=== PATIENT | male | born 1950 | race African-American/Black ===

== ENCOUNTER 2020-02-07 14:46 | Inpatient (IN) | payer MEDICARE, SELFPAY ==
[2020-02-07] VITALS (9 sets, daily range): BP systolic 117–169; BP diastolic 58–88; PULSE 83–104; RESP 16–18; TEMP 36.4–36.8; O2SAT 98–100; BMI 29.7
--- NOTE | ~2020-02-07 | XR_ITS ---
EXAMINATION: XR chest 1V portable EXAM DATE: 02/07/2020 15:47 INDICATION: Cough. TECHNIQUE: Frontal and lateral projections of the chest obtained and reviewed. There is no prior glenn dy for comparison. FINDINGS: There is patchy bilateral ill-defined airspace disease, differential diagnosis including C OVID-19, other viral or less likely bacterial infectious process, edema. Please clinically correlate. The cardiomediastinal silhouette is prominent but magnified on this AP technique. There is no pneumo thorax suspected. There are no pleural effusions. There are no osseous abnormalities identified. IMPRESSION: Patchy bilateral acute airspace disease. Recommend considering/excluding COVID 19. I discussed this case with Rasheeda Martin at 02/07/2020 16:11 CDT. Reviewed, dictated and finalized at location A. IMPRESSION: Patchy bilateral acute airspace disease. Recommend considering/exc luding COVID 19. I discussed this case with Rasheeda Martin at 02/07/2020 16:11 CDT.
--- NOTE | ~2020-02-07 | CT_ITS ---
EXAMINATION: CTA chest PE protocol EXAM DATE: 02/07/2020 17:45 INDICATION: Shortness of breath, cough, elevated d-dimer. TECHNIQUE: Spiral CTA of the chest (pulmonary arteries) was performed with 100 cc Omnipaque 350 intr avenous contrast injection. Images were acquired during the pulmonary arterial phase. Coronal maxi mum intensity projection 3D-reconstructions were created by the technologist on dedicated workstation . Axial, coronal and sagittal reformatted images were reviewed. The dose-length product (DLP) for t his examination was 850.56 mGy-cm. The exposure was tailored according to patient size (auto mA exp osure control), and iterative reconstruction (ASIR) was used as additional dose reduction technique. There is no prior study for comparison. FINDINGS: Pulmonary arteries are well opacified and without intraluminal filling defects. No thora cic aortic dissection. Bilateral patchy groundglass opacities Appearance is fairly typical of early stage COVID 19-induced acute lung injury. Less likely acute possibilities include influenza, pulmonary edema or hemorrhage. Some chronic processes that can have this appearance include cryptogenic organizing pneumonia, desqu amative interstitial pneumonia, nonspecific interstitial pneumonia, drug toxicity, connective tissue disease. Please clinically correlate and test as appropriate. There are no pleural or pericardial effusions. Tracheobronchial tree is patent. Several right hil ar lymph nodes measuring up to about 1.5 x 1.3 cm, mildly enlarged and probably reactive. There is n o pneumothorax. Heart normal in size. No evidence of coronary arterial calcification. There is sm all sliding gastroesophageal hiatal hernia. Sizable bridging mid and lower thoracic endplate osteoph ytes, diffuse idiopathic skeletal hyperostosis. IMPRESSION: 1. Patchy bilateral airspace disease suspicious for COVID-19 pneumonia. Clinical correlation. 2. Mild right hilar lymphadenopathy likely reactive. 3. No pulmonary emboli. Reviewed, dictated and finalized at location A. IMPRESSION: 1. Patchy bilateral airspace disease suspicious for COVID-19 pneumonia. Clinic al correlation. 2. Mild right hilar lymphadenopathy likely reactive. 3. No pulmonary emboli.
[2020-02-07 15:55] LABS: Basophils Percent Auto 0.2 % (0.2-1.2); Eosinophils Absolute Auto 0.1 K/mm3 (0-0.3); Eosinophils Percent Auto 2.2 % (0-4.4); Hematocrit 27.4 % (42.0-52.0); Hemoglobin 9.6 g/dL (14.0-18.0); Immature Granulocyte Absolute 0.03 K/mm3 (0.00-0.031); Immature Granulocyte Percent A 0.5 % (0-0.5); Lymphocytes Absolute Auto 0.73 K/mm3 (0.9-3.2); Lymphocytes Percent Auto 13.1 % (18.3-44.2); Mean Corpuscular Hemoglobin 30.6 pg (26-34); Mean Corpuscular Volume 87.3 fl (80-100); Mean Platelet Volume 9.2 fl (7.4-10.4); Monocytes Absolute Auto 0.3 K/mm3 (0.1-0.6); Monocytes Percent Auto 5.4 % (2.6-8.5); Neutrophils Absolute Auto 4.4 K/mm3 (1.3-6.7); Neutrophils Percent Auto 78.6 % (45.5-73.1); Platelet Count Result 212 k/mm3 (150-375); Red Blood Count 3.14 M/mm3 (4.6-6.20); Red Cell Distribution Width 16.1 % (11.5-14.5); White Blood Count 5.6 K/mm3 (4.5-10.0)
--- NOTE | 2020-02-07 16:05 | ECG_ITS ---
Measurements Intervals [place] Rate: 78 P: 28 IN: 165 QRS: -24 QRSD: 131 T: -3 QT: 368 QTc: 421 Interpretive Statements SINUS RHYTHM RIGHT BUNDLE BRANCH BLOCK BASELINE ARTIFACT- V6 ABNORMAL ECG Electronically Signed On 02-07-2020 19:45:20 CDT by Darci Cedeno D.O.
[2020-02-07 16:16] LABS: Anion Gap 11.8 mmol/L (7-16); Blood Urea Nitrogen 39 mg/dL (9-20); Calcium 8.8 mg/dL (8.4-10.2); Carbon Dioxide 25 mmol/L (22-30); Chloride 102 mmol/L (98-107); Estimated CRCL calculation 40 ml/min; Estimated Glomerular Filt Rate 43; Glucose 136 mg/dL (75-110); Potassium 4.8 mmol/L (3.4-5.0); Sodium 134 mmol/L (137-145)
[2020-02-07 16:18] LABS: Lactic Acid Reflex 0.8 mmol/L (0.7-2.1)
[2020-02-07 16:44] LABS: Prothrombin Time 12.8 Seconds (11.1-14.7)
[2020-02-07 16:47] LABS: Partial Thromboplastin Time 31.8 SECONDS (22.3-36.8)
[2020-02-07 16:51] LABS: D Dimer 1.47 ug/mL (<0.48)
[2020-02-07] MEDS: SODIUM CHLORIDE 0.9% IV 500 ML 999 ML IV CONT ×2 (16:54→18:20)
[2020-02-07 16:57] LABS: CRP 16.5 mg/dL (<1.0)
[2020-02-07 17:18] LABS: Alanine Aminotransferase 24 U/L (4-50); Albumin Level 3.7 g/dL (3.5-5.1); Alkaline Phosphatase 94 U/L (38-126); Aspartate Amino Transferase 51 U/L (17-59); Bilirubin,Total 0.3 mg/dL (0.2-1.3); Lactate Dehydrogenase 711 U/L (313-618)
--- NOTE | 2020-02-07 17:29 | ED.URI ---
HPI - URI/Sore Throat General Chief Complaint: Upper Respiratory Infection <AYAH Wang Last Filed: 02/07/20 19:04> Stated Complaint: Cough <AYAH Wang Last Filed: 02/07/20 19:04> Time Seen by Provider: 02/07/20 15:12 <AYAH Wang Last Filed: 02/07/20 19:04> Source: patient <AYAH Wang Last Filed: 02/07/20 19:04> Mode of arrival: ambulatory <AYAH Wang Last Filed: 02/07/20 19:04> Limitations: no limitations <AYAH Wang Last Filed: 02/07/20 19:04> History of Present Illness HPI Narrative: This is a 69-year-old male that presents the emergency department for cough x3 days. Also reports shortness of breath and congestion. Denies fever, or chest pain. <AYAH Wang Last Filed: 02/07/20 19:04> Related Data Home Medications: Home Medications Medication Instructions Recorded Confirmed allopurinol 300 mg PO DAILY 02/07/20 02/07/20 amlodipine 2.5 mg PO HS 02/07/20 02/07/20 aspirin 81 mg PO DAILY 02/07/20 02/07/20 atorvastatin 40 mg PO DAILY 02/07/20 02/07/20 cholecalciferol (vitamin D3) 50 mcg PO DAILY 02/07/20 02/07/20 lisinopril 40 mg PO DAILY 02/07/20 02/07/20 metformin 1,000 mg PO BID 02/07/20 02/07/20 triamterene-hydrochlorothiazid 1 cap PO DAILY 02/07/20 02/07/20 <AYAH Wang Last Filed: 02/07/20 19:04> Allergies/Adverse Reactions: Allergies Allergy/AdvReac Type Severity Reaction Status Date / Time No Known Allergies Allergy Verified 02/07/20 15:54 <AYAH Wang Last Filed: 02/07/20 19:04> Review of Systems Review of Systems: Narrative: CONSTITUTIONAL: Denies fever ENT: Reports rhinorrhea, congestion. Denies sore throat CARDIOVASCULAR: Denies chest pain RESPIRATORY: Reports cough and dyspnea. <Rasheeda Martin PA-C - Last Filed: 02/07/20 19:04> All systems reviewed & are unremarkable except as noted in HPI and below <Rasheeda Martin PA-C - Last Filed: 02/07/20 19:04> [facility] Past Medical History Medical History: Medical History (Updated 02/07/20 @ 19:02 by Rasheeda Martin PA-C) History of diabetes mellitus History of gout History of hyperlipidemia History of hypertension <Rasheeda Martin PA-C - Last Filed: 02/07/20 19:04> Social History Social History: Social History Gender identity (if verbalized by the patient): Male <Rasheeda Martin PA-C - Last Filed: 02/07/20 19:04> Exam Narrative: Exam Narrative: GENERAL: Well-appearing, well-nourished, and in no acute distress. HEAD: Normocephalic, atraumatic. EYES: EOMI. ENT: Nares clear, no rhinorrhea or epistaxis. Mucous membranes moist. Oropharynx without tonsillar hypertrophy exudate or other lesions. Bilateral TMs pearly davis non-bulging NECK: Supple. No adenopathy or masses. CHEST: Clear to auscultation. No respiratory distress. No wheezes rales or rhonchi HEART: Regular rate and rhythm. No murmur heard. Normal peripheral pulses. EXTREMITIES: Normal range of motion. No edema. SKIN: Warm, dry, no rash. NEURO: No focal deficits. Alert and oriented x3. PSYCH: Normal mood and affect <Rasheeda Martin PA-C - Last Filed: 02/07/20 19:04> Course LOCKS INSPECTOR/PA Physician Supervision For this encounter, I have reviewed the PA documentation, treatment plan and medical decision making: And I have had [id number] time with the patient. Had lengthy discussion with patient regarding need for admission and results. Discussed concern for COVID. Patient is agreement with admission at this time. All questions answered <Jeff Galeano DO - Last Filed: 02/07/20 18:55> Consultations Consultation #1: Spoke with hospitalist about patient and work-up who accepts admission <Rasheeda Martin PA-C - Last Filed: 02/07/20 19:04> Date: 02/07/20 <Rasheeda Martin PA-C - Last Filed: 02/07/20 19:04> Time: 19:02 <Rasheeda Martin PA-C - Last Filed: 02/07/20 19:04> Vital Sig
--- NOTE | 2020-02-07 21:33 | ADMGEN ---
This patient, Benjy Ruiz, was admitted to 3 [facility] Surg Room 330-01. Patient/family oriented to hospital policies and general routines including ID bracelet, bed and alarms, visiting hours, pain management, procedures, bathroom and other care routines, personal items, smoking policy, room service/diet, and visiting hours. Valuables list has been completed. Information on how to activate the Rapid Response Team has been discussed. Patient/Family are encouraged to report perceived risks to care and to ask questions if they do not understand what they are told or what they should do.
[2020-02-08] VITALS (12 sets, daily range): BP systolic 111–145; BP diastolic 46–91; PULSE 77–120; RESP 18; TEMP 36.7–37.4; O2SAT 96–100
--- NOTE | 2020-02-08 00:33 | PM.IMHP ---
H&P: HPI History of Present Illness Chief complaint: cough for 3 days Narrative: Date and time of patient contact: 02/07/2020 at 10:30 p.m. Benjy Ruiz is a 69 year old male with a past medical history of hypertension, hyperlipidemia and diabetes who presented to the ER with cough and shortness of breath for 2-3 days. He is from [place] and is here visiting family. He reports that 3 days ago he began having dry cough without any associated fever. He has been checking his temperature daily. He reports having coughing fits that cause him some chest discomfort but denies any true chest pain. Today he began having some mild clear sputum production. He has also noticed some nasal congestion today. He denies any headaches or visual changes. He has not had any loss of sense of taste or smell. He denies any known ill contacts with COVID-19 but has been visiting with numerous family members. He has not noticed any lower extremity swelling or pain. He had a CTA in the ER that was negative for PE but suggestive of bilateral pneumonia suspicious for COVID-19. He reports his symptoms are similar to when he had walking pneumonia about 10 or 15 years ago. He has not had any nausea or vomiting. he has had a 15 lb weight gain since August due to decreased activity with the cejf-[id number] orders. He denies any dysuria or hematuria. He admits he may not be as well hydrated as he usually is. He denies any history of kidney disease but his creatinine was elevated on his labs to 1.9. Review of Systems Review of Systems: Narrative: 12 systems were reviewed with pertinent positives and negatives per HPI. Except as documented in the HPI, all other systems were reviewed and are negative. [facility], [facility] Past Medical History Medical History (Updated 02/08/20 @ 02:19 by Delfina Coles DO) Essential hypertension Gout Hyperlipidemia Type 2 diabetes mellitus Vitamin D deficiency Surgical History Surgical History (Updated 02/08/20 @ 00:37 by Delfina Coles DO) H/O bilateral hip replacements 2001 and 2011 respectively Hypospadias, penile status post surgical repair Family History Family History Son Gunshot wound 2 sons who when the store they worked at was robbed. His remaining 7 children are healthy Mother Over 80 years old Father Pancreatic disease Alcohol use Sibling End-stage renal disease on hemodialysis his youngest brother of end-stage renal disease. 1 other brother in trauma. His remaining 2 brothers are still living. Social History Social History (Updated 02/08/20 @ 00:44 by Delfina Coles, DO) Smoking packs per day: 0.5 Smoking cigarettes per day: 10.0 Years smoked: 30 Smoking pack-years: 15.00 Smoking status: Former smoker Tobacco type: cigarettes and cigars Alcohol intake: current Alcohol use details: He only drinks alcohol on a rare occasion. Substance use: former Substance use type: marijuana Living arrangements: with family Additional living arrangements comments: He currently resides in [place] with his of 25 years. He had a total of 9 children by 3 different women. He reports that he was a Mr. Mom while raising his children. He is currently visiting family in the area for the last 10 days. He ambulates with a cane. Occupation/Education: retired Additional occupation/education comments: He is a retired maintenance planner. Gender identity (if verbalized by the patient): Male Spiritual care concerns: No Meds Home Medications and Allergies Home Medications Medication Instructions Recorded Confirmed Type allopurinol 300 mg PO DAILY 02/07/20 02/07/20 History amlodipine 2.5 mg PO HS 02/07/20 02/07/20 History aspirin 81 mg PO DAILY 02/07/20 02/07/20 History atorvastatin 40 mg PO HS 02/07/20 02/07/20 History cholecalciferol (vitamin D3) 50 mc
[2020-02-08 06:38] LABS: Mean Corpuscular HGB Conc 34.6 g/dl (32-36); Mean Corpuscular Hemoglobin 30.4 pg (26-34); Mean Corpuscular Volume 87.8 fl (80-100); Platelet Count Result 231 k/mm3 (150-375); Red Blood Count 2.96 M/mm3 (4.6-6.20); Red Cell Distribution Width 15.8 % (11.5-14.5); White Blood Count 4.2 K/mm3 (4.5-10.0)
[2020-02-08 06:57] LABS: Alanine Aminotransferase 22 U/L (4-50); Albumin Level 3.5 g/dL (3.5-5.1); Alkaline Phosphatase 80 U/L (38-126); Anion Gap 9.7 mmol/L (7-16); Aspartate Amino Transferase 47 U/L (17-59); Bilirubin,Total 0.3 mg/dL (0.2-1.3); Blood Urea Nitrogen 32 mg/dL (9-20); Calcium 8.9 mg/dL (8.4-10.2); Carbon Dioxide 27 mmol/L (22-30); Chloride 103 mmol/L (98-107); Estimated CRCL calculation 47 ml/min; Estimated Glomerular Filt Rate 53; Glucose 118 mg/dL (75-110); Lactate Dehydrogenase 680 U/L (313-618); Potassium 4.7 mmol/L (3.4-5.0); Sodium 135 mmol/L (137-145)
[2020-02-08] MEDS: ACETAMINOPHEN 325 MG TABLET 650 MG PO ×2 (09:31→22:26)
[2020-02-08] MEDS: allopurinoL 300 MG TABLET PO (09:32)
[2020-02-08] MEDS: ENOXAPARIN 40 MG/0.4 ML SYRINGE SUB-Q (09:33)
[2020-02-08] MEDS: ASPIRIN 81 MG ENTERIC TABLET PO (09:33)
[2020-02-08 11:40] LABS: Basophils Percent Auto 0.2 % (0.2-1.2); Eosinophils Absolute Auto 0.1 K/mm3 (0-0.3); Eosinophils Percent Auto 1.8 % (0-4.4); Hematocrit 25.6 % (42.0-52.0); Hemoglobin 8.8 g/dL (14.0-18.0); Immature Granulocyte Absolute 0.03 K/mm3 (0.00-0.031); Immature Granulocyte Percent A 0.7 % (0-0.5); Lymphocytes Absolute Auto 0.68 K/mm3 (0.9-3.2); Mean Corpuscular HGB Conc 34.4 g/dl (32-36); Mean Corpuscular Hemoglobin 29.9 pg (26-34); Mean Corpuscular Volume 87.1 fl (80-100); Monocytes Absolute Auto 0.3 K/mm3 (0.1-0.6); Monocytes Percent Auto 7.1 % (2.6-8.5); Neutrophils Absolute Auto 3.4 K/mm3 (1.3-6.7); Neutrophils Percent Auto 75.2 % (45.5-73.1); Platelet Count Result 227 k/mm3 (150-375); Red Blood Count 2.94 M/mm3 (4.6-6.20); Red Cell Distribution Width 15.9 % (11.5-14.5); White Blood Count 4.5 K/mm3 (4.5-10.0)
[2020-02-08 11:52] LABS: Anion Gap 10.7 mmol/L (7-16); Blood Urea Nitrogen 29 mg/dL (9-20); Calcium 8.6 mg/dL (8.4-10.2); Carbon Dioxide 27 mmol/L (22-30); Chloride 102 mmol/L (98-107); Estimated CRCL calculation 50 ml/min; Estimated Glomerular Filt Rate 57; Glucose 186 mg/dL (75-110); Potassium 4.7 mmol/L (3.4-5.0); Sodium 135 mmol/L (137-145)
[2020-02-08] MEDS: INSULIN ASPART (*BKC) 100 UNITS/ML SUB-Q ×2 (12:28→17:43)
[2020-02-08 12:58] LABS: Glucose Point of Care 211 (65-105)
[2020-02-08] MEDS: TOLNAFTATE 1% POWDER 45 GM BTL 1 APPLIC TOPICAL ×2 (14:10→20:15)
[2020-02-08 14:48] LABS: Add Urine Microscopic? YES; Appearance Urine Clear (Clear); Bacteria Urine Trace /hpf; Bilirubin Urine Negative (Negative); Blood Urine Negative (Negative); Color Urine Yellow (Yellow); Glucose Urine UA Negative (Negative); Ketones Urine Negative (Negative); Leukocyte Esterase Ur Negative LEU/UL (Negative); Nitrate Urine Negative (Negative); Protein Urine Negative (Negative); Specific Grav Ur 1.026 (1.001-1.035); Squamous Epithelial Cell Urine Occasional /hpf (Few); WBC Urine 0-3 /hpf
--- NOTE | 2020-02-08 17:18 | PM.IMPN ---
Progress Note: A&P Assessment and Plan (1) Pneumonia: Qualifiers: Pneumonia type: due to unspecified organism Laterality: bilateral Lung location: unspecified part of lung Qualified Code(s): J18.9 - Pneumonia, unspecified organism Code(s): J18.9 - Pneumonia, unspecified organism Status: Acute Assessment and Plan: CT appearance suspicious for COVID-19 pneumonia. Patient was placed on empiric antibiotic therapy with Rocephin and azithromycin. And blood cultures are pending. However if patient comes back positive for COVID-19 antibiotic therapy can be discontinued. 02/08/20 17:18 patient is a 69-year-old male from [place] has been traveling visiting his family most part of the country, he presented emergency department with a complaint of cough shortness of breath feverish, CT scan of the chest is concern for COVID-19 pneumonia patient is being isolated and tested for COVID-19, patient still complains of cough shortness of breath and rib pain. patient also has history of diabetes patient is currently is in isolation, will follow up from COVID-19 days, currently patient does not have a fever and is not requiring any oxygen, if patient remains stable does not developed fever does not need oxygen in next 2-3 days, we may discharge the patient home on self quarantine. in the event patient becomes hypoxic and oxygen saturation is below 90 and upper 80s will start the patient on steroid attending and start the patient on antiviral 5 dayswill continue to monitor (2) Person under investigation for severe acute respiratory syndrome coronavirus 2 (SARS-CoV-2) infection: Code(s): Z20.828 - Contact with and (suspected) exposure to other viral communicable diseases Status: Acute Assessment and Plan: Patient is on aerosol isolation. COVID-19 testing pending. (3) Acute kidney injury: Code(s): N17.9 - Acute kidney failure, unspecified Status: Acute Assessment and Plan: Acute kidney injury versus chronic kidney disease. The patient did receive 1.5 L IV fluids in the ER. Will hold the patient's lisinopril, metformin and thiazide diuretics. Will repeat electrolyte panel in a.m.. Subjective Date/time seen: 02/08/20 17:18 patient is a 69-year-old male from [place] has been traveling visiting his family most part of the country, he presented emergency department with a complaint of cough shortness of breath feverish, CT scan of the chest is concern for COVID-19 pneumonia patient is being isolated and tested for COVID-19, patient still complains of cough shortness of breath and rib pain. patient also has history of diabetes patient is currently is in isolation, will follow up from COVID-19 days, currently patient does not have a fever and is not requiring any oxygen, if patient remains stable does not developed fever does not need oxygen in next 2-3 days, we may discharge the patient home on self quarantine. in the event patient becomes hypoxic and oxygen saturation is below 90 and upper 80s will start the patient on steroid attending and start the patient on antiviral 5 dayswill continue to monitor Review of Systems Review of Systems: All systems reviewed & are unremarkable except as noted in HPI and below Exam Narrative: Exam Narrative: patient is seen but not examined patient is comfort temperature is 99?, pulse is 90, respiratory is 18, pulse ox is 99% at room air, blood pressure 111/57 Const: General: comfortable and no acute distress HENMT: General nose exam: Normal nares present Eyes: Sclera: sclerae normal Neck: Other: no retraction Resp: Effort & Inspection: normal respiratory effort GI: Other: not distended Skin: General skin exam: normal color Neuro: Speech: normal speech Extrem: General: normal to inspection Psych: Affect: Anxious affect present Objective Data Vital Sign
[2020-02-08] MEDS: polyethylene glycoL 3350 17 GM POWD.PACK PO (17:28)
[2020-02-08 18:32] LABS: Glucose Point of Care 202 (65-105)
[2020-02-08 18:47] LABS: SARS-CoV-2 RNA PCR Positive
[2020-02-08] MEDS: ATORVASTATIN 40 MG TABLET PO (20:15)
[2020-02-08] MEDS: DOCUSATE SODIUM 100 MG CAPSULE PO (20:15)
[2020-02-08] MEDS: amLODIPine BESYLATE 2.5 MG TABLET PO (20:15)
[2020-02-08 21:20] LABS: Glucose Point of Care 158 (65-105)
[2020-02-09] VITALS (14 sets, daily range): BP systolic 113–140; BP diastolic 67–85; PULSE 68–97; RESP 16–20; TEMP 36.6–37.7; O2SAT 97–100
[2020-02-09 06:39] LABS: Basophils Percent Auto 0.4 % (0.2-1.2); Eosinophils Absolute Auto 0.1 K/mm3 (0-0.3); Eosinophils Percent Auto 1.9 % (0-4.4); Hematocrit 24.7 % (42.0-52.0); Hemoglobin 8.5 g/dL (14.0-18.0); Immature Granulocyte Absolute 0.08 K/mm3 (0.00-0.031); Immature Granulocyte Percent A 1.7 % (0-0.5); Lymphocytes Absolute Auto 1.01 K/mm3 (0.9-3.2); Lymphocytes Percent Auto 21.1 % (18.3-44.2); Mean Corpuscular HGB Conc 34.4 g/dl (32-36); Mean Corpuscular Hemoglobin 29.8 pg (26-34); Mean Corpuscular Volume 86.7 fl (80-100); Mean Platelet Volume 8.7 fl (7.4-10.4); Monocytes Absolute Auto 0.4 K/mm3 (0.1-0.6); Monocytes Percent Auto 8.4 % (2.6-8.5); Neutrophils Absolute Auto 3.2 K/mm3 (1.3-6.7); Neutrophils Percent Auto 66.5 % (45.5-73.1); Platelet Count Result 248 k/mm3 (150-375); Red Blood Count 2.85 M/mm3 (4.6-6.20); Red Cell Distribution Width 15.7 % (11.5-14.5); White Blood Count 4.8 K/mm3 (4.5-10.0)
[2020-02-09 07:06] LABS: Alanine Aminotransferase 35 U/L (4-50); Albumin Level 3.4 g/dL (3.5-5.1); Alkaline Phosphatase 80 U/L (38-126); Anion Gap 11.8 mmol/L (7-16); Aspartate Amino Transferase 64 U/L (17-59); Bilirubin,Total 0.3 mg/dL (0.2-1.3); Blood Urea Nitrogen 24 mg/dL (9-20); Calcium 8.8 mg/dL (8.4-10.2); Carbon Dioxide 27 mmol/L (22-30); Chloride 101 mmol/L (98-107); Estimated CRCL calculation 47 ml/min; Estimated Glomerular Filt Rate 53; Glucose 121 mg/dL (75-110); Potassium 4.8 mmol/L (3.4-5.0); Sodium 135 mmol/L (137-145)
[2020-02-09 08:13] LABS: CRP 18.9 mg/dL (<1.0)
[2020-02-09] MEDS: CHOLECALCIFEROL 1,000 UNIT TABLET 1000 UNITS PO (08:31)
[2020-02-09] MEDS: ASPIRIN 81 MG ENTERIC TABLET PO (08:31)
[2020-02-09] MEDS: ENOXAPARIN 40 MG/0.4 ML SYRINGE SUB-Q (08:31)
[2020-02-09] MEDS: allopurinoL 300 MG TABLET PO (08:31)
[2020-02-09] MEDS: DOCUSATE SODIUM 100 MG CAPSULE PO ×2 (12:02→21:30)
[2020-02-09] MEDS: TOLNAFTATE 1% POWDER 45 GM BTL 1 APPLIC TOPICAL ×2 (12:05→21:42)
[2020-02-09] MEDS: INSULIN ASPART (*BKC) 100 UNITS/ML SUB-Q (12:09)
[2020-02-09 12:31] LABS: Glucose Point of Care 238 (65-105)
[2020-02-09 14:20] LABS: Glucose Point of Care 115 (65-105)
--- NOTE | 2020-02-09 15:25 | PM.IMPN ---
Progress Note: A&P Assessment and Plan (1) Pneumonia: Qualifiers: Laterality: bilateral Lung location: unspecified part of lung Pneumonia type: due to unspecified organism Qualified Code(s): J18.9 - Pneumonia, unspecified organism Code(s): J18.9 - Pneumonia, unspecified organism Status: Acute Assessment and Plan: CT appearance suspicious for COVID-19 pneumonia. Patient was placed on empiric antibiotic therapy with Rocephin and azithromycin. And blood cultures are pending. However if patient comes back positive for COVID-19 antibiotic therapy can be discontinued. 02/09/20 15:25 patient is a 69-year-old male from [place] has been traveling visiting his family most part of the country, he presented emergency department with a complaint of cough shortness of breath feverish, CT scan of the chest is concern for COVID-19 pneumonia patient is being isolated and tested for COVID-19, patient still complains of cough shortness of breath and rib pain. 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 COVID-19 testing pending. (3) Acute kidney injury: Code(s): N17.9 - Acute kidney failure, unspecified Status: Acute Assessment and Plan: Acute kidney injury versus chronic kidney disease. The patient did receive 1.5 L IV fluids in the ER. Will hold the patient's lisinopril, metformin and thiazide diuretics. Will repeat electrolyte panel in a.m.. Subjective Date/time seen: 02/09/20 15:25 patient is a 69-year-old male from [place] has been traveling visiting his family most part of the country, he presented emergency department with a complaint of cough shortness of breath feverish, CT scan of the chest is concern for COVID-19 pneumonia patient is being isolated and tested for COVID-19, patient still complains of cough shortness of breath and rib pain. 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, will discuss with the Infectious Disease plan for him to travel to [place] as he is high risk to spreading infection will plan tomorrow and further recommendation to follow Review of Systems Review of Systems: All systems reviewed & are unremarkable except as noted in HPI and below Exam Narrative: Exam Narrative: patient is seen but not examined patient is comfort temperature is 98.6, pulse is 97, respiratory is 16, pulse ox is 97% at room air, blood pressure 113/65 Const: General: comfortable and no acute distress HENMT: General nose exam: Normal nares present Eyes: Sclera: sclerae normal Neck: Other: no retraction Resp: Effort & Inspection: normal respiratory effort GI: Other: not distended Skin: General skin exam: normal color Neuro: Speech: normal speech Extrem: General: normal to inspection Psych: Affec
[2020-02-09] MEDS: ACETAMINOPHEN 325 MG TABLET 650 MG PO (18:24)
[2020-02-09 20:09] LABS: Glucose Point of Care 186 (65-105)
[2020-02-09] MEDS: amLODIPine BESYLATE 2.5 MG TABLET PO (21:30)
[2020-02-09] MEDS: ATORVASTATIN 40 MG TABLET PO (21:31)
[2020-02-09 21:41] LABS: Glucose Point of Care 223 (65-105)
[2020-02-10] VITALS: PULSE 72
[2020-02-10 02:00] VITALS: BP 141/79; PULSE 84; RESP 20; TEMP 36.9; O2SAT 96
[2020-02-10 04:00] VITALS: PULSE 78
[2020-02-10 06:00] VITALS: BP 150/84; PULSE 82; RESP 20; TEMP 36.8; O2SAT 98
[2020-02-10] MEDS: ACETAMINOPHEN 325 MG TABLET 650 MG PO (06:16)
[2020-02-10 06:32] LABS: Basophils Percent Auto 0.4 % (0.2-1.2); Eosinophils Absolute Auto 0.1 K/mm3 (0-0.3); Eosinophils Percent Auto 2.6 % (0-4.4); Hematocrit 25.4 % (42.0-52.0); Hemoglobin 8.7 g/dL (14.0-18.0); Immature Granulocyte Absolute 0.11 K/mm3 (0.00-0.031); Immature Granulocyte Percent A 2.4 % (0-0.5); Lymphocytes Absolute Auto 0.79 K/mm3 (0.9-3.2); Lymphocytes Percent Auto 17.4 % (18.3-44.2); Mean Corpuscular HGB Conc 34.3 g/dl (32-36); Mean Corpuscular Hemoglobin 29.8 pg (26-34); Mean Platelet Volume 8.4 fl (7.4-10.4); Monocytes Absolute Auto 0.5 K/mm3 (0.1-0.6); Monocytes Percent Auto 9.9 % (2.6-8.5); Neutrophils Absolute Auto 3.1 K/mm3 (1.3-6.7); Neutrophils Percent Auto 67.3 % (45.5-73.1); Platelet Count Result 262 k/mm3 (150-375); Red Blood Count 2.92 M/mm3 (4.6-6.20); Red Cell Distribution Width 15.7 % (11.5-14.5); White Blood Count 4.5 K/mm3 (4.5-10.0)
[2020-02-10 06:58] LABS: Alanine Aminotransferase 44 U/L (4-50); Albumin Level 3.4 g/dL (3.5-5.1); Alkaline Phosphatase 78 U/L (38-126); Anion Gap 9.5 mmol/L (7-16); Aspartate Amino Transferase 63 U/L (17-59); Bilirubin,Total 0.3 mg/dL (0.2-1.3); Blood Urea Nitrogen 19 mg/dL (9-20); CRP 19.2 mg/dL (<1.0); Calcium 9.3 mg/dL (8.4-10.2); Carbon Dioxide 28 mmol/L (22-30); Chloride 102 mmol/L (98-107); Estimated CRCL calculation 53 ml/min; Estimated Glomerular Filt Rate > 60; Glucose 130 mg/dL (75-110); Potassium 4.5 mmol/L (3.4-5.0); Sodium 135 mmol/L (137-145)
[2020-02-10 08:00] VITALS: PULSE 86
[2020-02-10 09:39] LABS: Glucose Point of Care 121 (65-105)
[2020-02-10] MEDS: ASPIRIN 81 MG ENTERIC TABLET PO (09:46)
[2020-02-10] MEDS: allopurinoL 300 MG TABLET PO (09:46)
[2020-02-10] MEDS: TOLNAFTATE 1% POWDER 45 GM BTL 1 APPLIC TOPICAL (09:46)
[2020-02-10] MEDS: DOCUSATE SODIUM 100 MG CAPSULE PO (09:46)
[2020-02-10] MEDS: CHOLECALCIFEROL 1,000 UNIT TABLET 1000 UNITS PO (09:46)
[2020-02-10] MEDS: ENOXAPARIN 40 MG/0.4 ML SYRINGE SUB-Q (09:46)
[2020-02-10 10:00] VITALS: BP 149/88; PULSE 72; RESP 16; TEMP 36.7; O2SAT 98
--- NOTE | 2020-02-10 10:31 | PC.NURSE ---
Pt demands to leave by 1230 to head back home to [place] since his family drove up here to take him back home. Pt states he is willing to quarantine when he gets back home, and he will sleep in a separate room from his . Continuing to provide pt education on quarantining, 02 saturation, SOB, increased resp rate, increasing temperatures, other signs and symptoms to monitor for and to present to a local ED for worsening of symptoms. Pt encouraged to continue increase oral intake to continue to flush kidneys. Warned pt of dangers of traveling in a car for 8 hours and exposing his family to his COVID. Educated pt on each of them wearing masks, limiting stops, the need for pt to avoid leaving car, and the affected family members traveling with him to quarantine for 14 days, in addition to all of the family that he has been in contact with up here in [place]. Spoke with Dr. Elisa Linton and Jeanne about this. All were in agreement.
--- NOTE | 2020-02-10 11:28 | PM.DS ---
DS: Admitting Diagnosis Admitting Diagnosis Admitting Diagnosis: Pneumonia, unspecified organism DS: Discharge Diagnosis Discharge Diagnosis (1) Pneumonia: Qualifiers: Pneumonia type: due to unspecified organism Laterality: bilateral Lung location: unspecified part of lung Qualified Code(s): J18.9 - Pneumonia, unspecified organism Code(s): J18.9 - Pneumonia, unspecified organism Status: Acute Assessment and Plan: CT appearance suspicious for COVID-19 pneumonia. Patient was placed on empiric antibiotic therapy with Rocephin and azithromycin. And blood cultures are pending. However if patient comes back positive for COVID-19 antibiotic therapy can be discontinued. 02/09/20 15:25 patient is a 69-year-old male from [place] has been traveling visiting his family most part of the country, he presented emergency department with a complaint of cough shortness of breath feverish, CT scan of the chest is concern for COVID-19 pneumonia patient is being isolated and tested for COVID-19, patient still complains of cough shortness of breath and rib pain. 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 COVID-19 testing pending. (3) Acute kidney injury: Code(s): N17.9 - Acute kidney failure, unspecified Status: Acute Assessment and Plan: Acute kidney injury versus chronic kidney disease. The patient did receive 1.5 L IV fluids in the ER. Will hold the patient's lisinopril, metformin and thiazide diuretics. Will repeat electrolyte panel in a.m.. DS: Summary Hospital Course Reason for hospitalization: Benjy Ruiz is a 69 year old male with a past medical history of hypertension, hyperlipidemia and diabetes who presented to the ER with cough and shortness of breath for 2-3 days. He is from [place] and is here visiting family. He reports that 3 days ago he began having dry cough without any associated fever. He has been checking his temperature daily. He reports having coughing fits that cause him some chest discomfort but denies any true chest pain. Today he began having some mild clear sputum production. He has also noticed some nasal congestion today. He denies any headaches or visual changes. He has not had any loss of sense of taste or smell. He denies any known ill contacts with COVID-19 but has been visiting with numerous family members. He has not noticed any lower extremity swelling or pain. He had a CTA in the ER that was negative for PE but suggestive of bilateral pneumonia suspicious for COVID-19. He reports his symptoms are similar to when he had walking pneumonia about 10 or 15 years ago. He has not had any nausea or vomiting. he has had a 15 lb weight gain since August due to decreased activity with the [id number] orders. He denies any dysuria or hematuria. He admits he may not be as well hydrated as he usually is. He denies any history of kidney disease but his creatinine was elevated on his labs to 1.9. Hospital Course: I have spoke with Shaila hughes prior to discharging the patient as he is positive for COVID 19 and traveling to his home state
== END 2020-02-10 13:00 | disposition home or self-care (01) | DRG 177 ==
LOC: ANHED 19:06 → ANH3MEDSUR 19:58
PROVIDERS: Internal Medicine; Physician Assistant; Admitting Provider Family Medicine; Emergency Provider Emergency Medicine; Visit Provider Family Medicine
DX: U07.1 COVID-19 (principal); J12.89 Other viral pneumonia; N17.9 Acute kidney failure, unspecified
CPT/HCPCS: 36415; 71045; 71275; 80048; 80053; 80076; 81001; 82728; 83605; 83615; 85025; 85027; 85380; 85610; 85730; 86140; 87040; 87635; 93005; 96361; 96365; 96367; 99291; A9270; C9803; G0378; J0456; J0696; J1650; J1815; J7040; Q9967; U0003